=== PATIENT | female | born 1950 | race Caucasian/White ===

== ENCOUNTER 2018-09-08 12:26 | Emergency (ER) | payer MEDICARE ==
[2018-09-08 12:35] VITALS: BP 145/83
--- NOTE | 2018-09-08 12:44 | ED Physician Documentation ---
History of Present Illness - Stated complaint Stated Complaint: R BIG TOE PX - Chief complaint Chief Complaint: Ext Problem - History obtained from History obtained from: Patient - History of Present Illness Timing: Prior to arrival - Additonal information Additional information: Patient is a previously healthy 68-year-old female presenting with left great toe injury after she accidentally dropped a piece of plywood onto it. Patient denies other injuries. Patient reports laceration and bleeding, as well as mild pain. No significant change in range of motion, sensation, or strength.Tetanus unknown. No other improving or worsening factors noted. 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 - Present Medications Home Medications: Ambulatory Orders Medication Instructions Recorded Confirmed Amox/Clav 875/125 [Augmentin] 1 each PO Q12H 7 Days tablet 09/08/18 - Allergies Allergies/Adverse Reactions: Allergies Allergy/AdvReac Type Severity Reaction Status Date / Time No Known Drug Allergies Allergy Verified 09/08/18 12:35 PD ED PE NORMAL - Vitals Vital signs reviewed: Yes - General General: Alert and oriented X 3, No acute distress, Well developed/nourished - HEENT HEENT: Atraumatic, Moist mucous membranes - Cardiac Cardiac: Strong equal pulses - Respiratory Respiratory: No respiratory distress - Derm Derm: Normal color, Warm and dry, No rash, Other (Less than 1 inch linear laceration to medial aspect of distal left great toe without nail involvement) - Extremities Extremities: No deformity, No tenderness to palpate - Neuro Neuro: Alert and oriented X 3, No motor deficit, No sensory deficit - Psych Psych: Normal mood, Normal affect Results - Vitals Vitals: Vital Signs - 24 hr 09/08/18 12:33 Temperature 36.0 C L Heart Rate 72 Respiratory 15 Rate Blood Pressure 145/83 H O2 Saturation 98 Oxygen O2 Source Room air PD MEDICAL DECISION MAKING - ED course Complexity details: reviewed results, re-evaluated patient, considered differential, d/w patient, d/w labor relations consultant ED course: Patient presenting with left great toe injury after dropping a piece of plywood on it. Patient does have superficial laceration that was anesthetized with let, cleaned, but will not require closure. Tetanus updated. X-ray Found evidence of nondisplaced distal tuft fracture.Spoke with orthopedic physician on-call who recommended outpatient follow-up, shereen taping, and antibiotics. Discussed plan with patient and she is agreeable to this as well as voiced understanding of other return precautions and supportive cares. Departure - Departure Disposition: 01 Home, Self Care Clinical Impression: Toe fracture, left Qualifiers: Encounter type: initial encounter Toe: great toe Fracture type: closed Phalanx: distal Fracture alignment: nondisplaced Qualified Code(s): S92.425A - Nondisplaced fracture of distal phalanx of left great toe, initial encounter for closed fracture Condition: Good Instructions: ED Fx Foot Follow-Up: Real Schneider MD [Provider Admit Priv/Credential] - Within 3 Days Prescriptions: Amox/Clav 875/125 [Augmentin] 1 each PO Q12H 7 Days tablet Comments: Please keep toes shereen taped to help for support. Recommend elevation, ice application, as well as bacitracin or Neosporin as needed. Please take antibiotics as prescribed to prevent infection. Please follow-up with orthopedic surgery next to 3 days and return to ED sooner if experience worsening symptoms or you have other concerns.
[2018-09-08] MEDS ORDERED: LIDOCAINE-EPINEPH-TETRACAINE 3 ML SYRINGE TOP STA (12:50)
[2018-09-08] MEDS ORDERED: TETANUS/DIPHTHERIA/PERTUSSIS 0.5 ML SYRINGE IM ONE (13:05)
--- NOTE | 2018-09-08 13:50 | XRAY Report ---
Reason: great toe injury Procedure Date: 09/08/2018 Accession Number: [id number] / [id number] Procedure: XR - Toe(s) LT CPT Code: FULL RESULT: EXAM: LEFT TOE RADIOGRAPHY EXAM DATE: 09/08/2018 01:29 PM. CLINICAL HISTORY: Great toe injury. COMPARISON: None. TECHNIQUE: 3 views. FINDINGS: Bones: There is a cortical step-off of the distal tuft of the first distal phalanx on the oblique image. Joints: Normal. No subluxations. Soft Tissues: There is soft tissue swelling. IMPRESSION: Nondisplaced fracture of the distal tuft of the first distal phalanx consistent with a fracture of uncertain chronicity. [facility]
== END 2018-09-08 14:46 | disposition home or self-care (01) ==
LOC: ED 12:26
DX: S92.425A Nondisplaced fracture of distal phalanx of left great toe, initial encounter for closed fracture (principal); S91.112A Laceration without foreign body of left great toe without damage to nail, initial encounter; W20.8XXA Other cause of strike by thrown, projected or falling object, initial encounter; Y93.89 Activity, other specified; Z23 Encounter for immunization
CPT/HCPCS: 73660; 90471; 99284